=== PATIENT | male | born 1960 | race Caucasian/White ===

== ENCOUNTER 2018-03-03 19:19 | Emergency (ER) | payer BC ==
[~2018-03-03] VITALS: Ht 170.2 cm; Wt 79.9 kg
[2018-03-03] MEDS ORDERED: LOSA50TA7 PO (19:49)
--- NOTE | 2018-03-03 19:49 | NUR ---
PT PRESENTED WITH C/O SORE THROAT AND OCCASSIONAL NONPRODUCTIVE COUGH THAT STARTED THIS AM. DENIES FEVER, N/V. MONITOR APPLIED, SIDERAILS UP X2, CALL LIGHT WITHIN REACH. AWAITING ERP FOR EVAL AND ORDERS.
[2018-03-03] MEDS ORDERED: DEXAMETHASONE 4 MG TABLET PO ONE (20:30)
[2018-03-03] MEDS ORDERED: DEXAMETHASONE 4 MG TABLET ONE (20:38)
--- NOTE | 2018-03-03 20:40 | NUR ---
PT MEDICATED PER MAR
[2018-03-03 21:03] VITALS: BP 131/89
== END 2018-03-03 21:24 | disposition home or self-care (01) ==
LOC: ED 21:18
DX: J02.8 Acute pharyngitis due to other specified organisms (principal); B97.89 Other viral agents as the cause of diseases classified elsewhere; I10 Essential (primary) hypertension; Z87.891 Personal history of nicotine dependence
CPT/HCPCS: 87081; 87880; 99283